=== PATIENT | female | born 1970 | race Two or more races ===

== ENCOUNTER 2023-12-04 00:43 | Emergency (ER) | payer OTHER ==
[~2023-12-04] VITALS: Ht 152.4 cm; Wt 74.4 kg
[2023-12-04 03:07] LABS: BASOPHILS % (AUTO) 0.3 % (0.0-2.0); EOSINOPHILS # (AUTO) 0.1 K/uL (0.0-0.7); HEMATOCRIT 37 % (33-45); HEMOGLOBIN 12.5 g/dL (11.5-14.8); LYMPHOCYTES # (AUTO) 2.2 K/uL (0.8-4.8); LYMPHOCYTES % (AUTO) 14.5 % (20.0-44.0); MEAN CORPUSCULAR HEMOGLOBIN 28 PG (26.0-33.0); MEAN CORPUSCULAR HGB CONC 34 g/dl (31.0-36.0); MEAN CORPUSCULAR VOLUME 84 fL (82-100); MONOCYTES # (AUTO) 1.3 K/uL (0.1-1.30); MONOCYTES % (AUTO) 8.5 % (2.0-12.0); NEUTROPHILS # (AUTO) 11.3 K/uL (1.8-8.9); NEUTROPHILS % (AUTO) 75.7 % (43.0-81.0); PLATELET COUNT (AUTO) 321 K/uL (150-450); RED BLOOD CELL COUNT(AUTO) 4.46 MIL/uL (4.0-5.2); RED CELL DISTRIBUTION WIDTH 13.9 % (11.5-15.0); WHITE BLOOD COUNT (AUTO) 14.9 K/uL (4.3-11.0)
[2023-12-04 03:24] LABS: CALCIUM, SERUM 9.4 mg/dL (8.5-10.1); CREATININE 0.9 mg/dL (0.6-1.3); POTASSIUM 3.6 mmol/L (3.5-5.1)
[2023-12-04 03:30] LABS: ALBUMIN 3.6 g/dL (3.4-5.0); BILIRUBIN,TOTAL 0.3 mg/dL (0.2-1.0); TOTAL PROTEIN, SERUM 7.8 g/dL (6.4-8.2)
[2023-12-04] MEDS ORDERED: FAMOTIDINE/PF INJ 20 MG/2 ML VIAL IV ONE (03:46)
[2023-12-04] MEDS ORDERED: diphenhydrAMINE HCL 50 MG/ML VIAL ONE (03:46)
[2023-12-04] MEDS ORDERED: methylPREDNISolone SOD SUCC 125 MG/2ML VIAL ONE (03:46)
[2023-12-04] MEDS: methylPREDNISolone SOD SUCC 125 MG/2ML VIAL IV ONE (03:55)
[2023-12-04] MEDS: diphenhydrAMINE HCL 50 MG/ML VIAL IV ONE (03:55)
[2023-12-04] MEDS: FAMOTIDINE/PF INJ 20 MG/2 ML VIAL IV ONE (03:55)
[2023-12-04 04:00] LABS: APPEARANCE,URINE CLEAR (CLEAR); BILIRUBIN,URINE NEGATIVE (NEGATIVE); BLOOD, URINE NEGATIVE Ery/uL (NEGATIVE); COLOR,URINE YELLOW (YELLOW); KETONES,URINE TRACE mg/dL (NEGATIVE); LEUKOCYTE ESTERASE ,URINE TRACE (NEGATIVE); NITRITE, URINE NEGATIVE (NEGATIVE); PROTEIN,URINE NEGATIVE (NEGATIVE); UGLUCOSE NEGATIVE (NEGATIVE); UROBILINOGEN,URINE 0.2 EU/dL (0.2)
[2023-12-04 04:13] LABS: ADD URINE CULTURE YES; BACTERIA,URINE Few /HPF (None Seen); RBC,URINE 0-2 /HPF (0-2); SQUAMOUS EPITHELIAL CELL,UR Moderate /HPF (None Seen)
[2023-12-04] MEDS ORDERED: PRED50TA PO (04:21)
[2023-12-04] MEDS ORDERED: DIPH25CA83 PO (04:21)
[2023-12-04 04:34] VITALS: BP 136/78; TEMP 98; O2SAT 98
== END 2023-12-04 04:35 | disposition home or self-care (01) ==
LOC: ER 00:45
DX: L50.9 Urticaria, unspecified (principal); Z87.442 Personal history of urinary calculi
CPT/HCPCS: 99284; 96374; 96375; 85025; 87086; 83605; 81001; 36415; 80053; J1200; J3490; J2919